=== PATIENT | female | born 1950 | race Two or more races ===

== ENCOUNTER 2017-05-16 20:20 | Emergency (ER) | payer OTHER ==
[2017-05-16 20:28] VITALS: BP 179/82
--- NOTE | 2017-05-16 21:55 | RAD ---
Indication: Right shoulder pain. 4 views of the right shoulder demonstrates calcific tendinitis of the supraspinatous tendon. No fracture is noted. IMPRESSION: Calcific tendinitis of the supraspinatous tendon. No fracture of the right shoulder is noted.
[2017-05-16] MEDS ORDERED: oxyCODONE/Acetamin 5/325 MG* TAB PO ONE (22:15)
--- NOTE | 2017-06-13 22:36 | ED ---
Serge Harding Alfonso, scribed for Hernan Ashton MD on 05/16/17 at 2137 . Upper Extremity Pain - HPI Summary HPI Summary: This patient is a 66 year old F presenting to [facility] accompanied by sister with a chief complaint of RUE pain, from right-sided neck to right hand, worse in the right shoulder since 1 year ago, worse since this morning. She reports being in pain all the time. The patient rates the pain 10/10 in severity. Symptoms aggravated by RUE movement and palpation. Symptoms not aggravated by coughing, sneezing, and neck movement. Symptoms alleviated by nothing. Patient reports insomnia secondary to pain, RUE weakness, and bilateral hand numbness ( PMHx Carpel tunnel). Patient denies decreased RUE sensations, and recent trauma. She had a recent back nerve block. She has a scheduled MRI. - History of Current Complaint Chief Complaint: EDExtremityUpper Stated Complaint: PAIN RT SHOULDER Hx Obtained From: Patient Onset/Duration: Started Weeks Ago - a year ago, Still Present, Worse Since - this morning Timing: Constant Severity Initially: Moderate Severity Currently: Severe Pain Location: Shoulder - right, Other: - RUE, right sided neck Aggravating Factor(s): Movement, Other - palpation Alleviating Factor(s): Nothing Associated Signs & Symptoms: Positive: Other - insomnia secondary to pain, RUE weakness, and bilateral hand numbness (PMHx Carpel tunnel). Patient denies decreased RUE sensations, and recent trauma. - Allergies/Home Medications Allergies/Adverse Reactions: Allergies Allergy/AdvReac Type Severity Reaction Status Date / Time No Known Allergies Allergy Verified 05/16/17 20:28 PMH/Surg Hx/FS Hx/Imm Hx Endocrine/Hematology History: Denies: Hx Diabetes Cardiovascular History: Reports: Hx Hypertension Denies: Hx Congestive Heart Failure History: Denies: Hx Renal Disease Musculoskeletal History: Reports: Hx Arthritis, Hx Rheumatoid Arthritis, Other Musculoskeletal History - Carpel Tunnel Sensory History: Reports: Hx Contacts or Glasses Opthamlomology History: Reports: Hx Contacts or Glasses Neurological History: Reports: Hx Headaches, Other Neuro Impairments/Disorders - Numb fingers bilat - Surgical History Surgery Procedure, Year, and Place: 1993 hysterectomy - Immunization History Date of Influenza Vaccine: has not received Infectious Disease History: No Infectious Disease History: Denies: Traveled Outside the [place] in Last 30 Days - Family History Known Family History: Positive: Unknown Family History: pt does not know FHx - Social History Alcohol Use: None Hx Substance Use: No Substance Use Type: Reports: None Hx Tobacco Use: No Smoking Status (MU): Never Smoked Tobacco Review of Systems Negative: Fever Positive: Other - RUE pain in right-sided neck to right hand; negative RUE sensations, recent trauma Neurological: Other - insomnia Positive: Weakness - RUE, Numbness - bilateral hand All Other Systems Reviewed And Are Negative: Yes Physical Exam - Summary Physical Exam Summary: Appearance: Well-appearing, Well-nourished Skin: Warm, Dry, No rash Eyes: Normal, PERRL, EOMI, sclera anicteric ENT: Normal Neck: Supple, nontender Respiratory: Clear to auscultation Cardiovascular: S1, S2, no murmur, no rub, no gallop Abdomen: Soft, nontender, no organomegaly Bowel sounds: Present Musculoskeletal: pulses symmetrical. Pain primarily associated with right shoulder movement. Decreased right shoulder ROM. Unable to internally rotate shoulder. Decreased external rotation. Abduction 90 degrees. Pain to touch lateral portion of shoulder. Good axminster rug setter strength. Good intrinsic muscle hand strength bilaterally. Normal sensations. Radial ulnar median distribution. Positive Tinels Sign. Slightly decreased hypoesthesia in medial neural distribution. FROM in neck, elbow, and wrist without pain. Reflexes normal in biceps, triceps, and brachial plexus. Neurological: A&Ox3, cranial nerves II-XII WNL, follows commands, gait not tested Psychiatric: affect normal, behavior appropriate, dressed appropriately, judgment intact Triage Information Reviewed: Yes Vital Signs On Initial Exam: Initial Vitals Temp Pulse Resp BP Pulse Ox 98.5 F 75 16 179/82 95 05/16/17 20:25 05/16/17 20:25 05/16/17 20:25 05/16/17 20:25 05/16/17 20:25 Vital Signs Reviewed: Yes Diagnostics - Vital Signs Vital Signs Temp Pulse Resp BP Pulse Ox 05/16/17 20:25 98.5 F 75 16 179/82 95 - Laboratory Lab Statement: Any lab studies that have been ordered have been reviewed, and results considered in the medical decision making process. - Radiology Shoulder XR Radiology Interpretation Completed By: Radiologist - Calcific tendinitis of the supraspinatous tendon. No fracture of the right shoulder is noted. ED physician has reviewed this radiology report and agrees. Course/Dx - Course Assessment/Plan: In the ED course the patient was given Percocet. Patient will be discharged with prescription for Percocet and follow up from PCP and orthopedics. The patient is agreeable with this plan. - Diagnoses Differential Diagnosis/HQI/PQRI: Positive: Fracture (Open) Provider Diagnoses: Rotator cuff disorder Discharge - Discharge Plan Condition: Fair Disposition: HOME Prescriptions: oxyCODONE/Acetam5/325MG PREPAK [Percocet 5/325 TAB*] 1 tab PO ACHS 5 Days #20 tab MDD 4 Patient Education Materials: Tendinitis (ED) Referrals: Cara Cassidy MD [Medical Doctor] - Radha Patel MD [Primary Care Provider] - The documentation as recorded by the Serge leong Alfonso accurately reflects the service I personally performed and the decisions made by , Hernan Ashton MD.
== END 2017-05-16 23:30 | disposition home or self-care (01) ==
LOC: ED 20:20
DX: M25.511 Pain in right shoulder (principal); M79.621 Pain in right upper arm; G47.00 Insomnia, unspecified; R53.1 Weakness
CPT/HCPCS: 99282; A9270-GY